=== PATIENT | female | born 1970 | race Caucasian/White ===

== ENCOUNTER 2023-12-16 13:02 | Inpatient (IN) | payer MEDICAID ==
[~2023-12-16] VITALS: Ht 162.6 cm; Wt 70.4 kg
[2023-12-16] MEDS: diphenhydrAMINE 50 mg/ml inj IV ONE (20:30)
[2023-12-16] MEDS: metoclopramide 5 mg/ml inj IV ONE (20:30)
[2023-12-16] MEDS: magnesium 1 gm/2ml inj. 1 GM in normal saline 50ml IV soln 50 ML IV ONE (21:00)
[2023-12-16 21:05] LABS: BASOPHILS % (AUTO) 0.5 % (0-1); EOSINOPHILS # (AUTO) 0.1 X10'3 (0-0.9); HEMATOCRIT 37.5 % (35.0-45.0); HEMOGLOBIN 12.6 g/dl (12.0-16.0); LYMPHOCYTES # (AUTO) 4.3 X10'3 (1.1-4.8); LYMPHOCYTES % (AUTO) 44.7 % (21-51); MEAN CORPUSCULAR HEMOGLOBIN 30.5 PG (27.0-31.0); MEAN CORPUSCULAR HGB CONC 33.6 g/dL (33.0-36.5); MEAN CORPUSCULAR VOLUME 90.9 FL (78-98); MEAN PLATELET VOLUME 7.5 FL (7.4-10.4); MONOCYTES # (AUTO) 0.3 X10'3 (0-0.9); MONOCYTES % (AUTO) 2.9 % (2-12); NEUTROPHILS # (AUTO) 4.8 X10'3 (1.8-7.7); NEUTROPHILS % (AUTO) 50.9 % (42-75); PLATELET COUNT 351 X10'3 (140-440); RED BLOOD COUNT 4.13 X10'6 (4.20-5.60); RED CELL DISTRIBUTION WIDTH 14.2 % (11.5-14.5); WHITE BLOOD COUNT 9.5 X10'3 (4.5-11.0)
[2023-12-16] MEDS ORDERED: iohexol 350MG/ML 100ml bottle IV ONE (21:07)
[2023-12-16 22:36] LABS: APTT 27 SECONDS (22-32); PROTHROMBIN TIME 10.8 SECONDS (9.0-12.0)
[2023-12-16 22:44] LABS: ALBUMIN 3.2 G/DL (3.4-5.0); ANION GAP 6 (8-16); BLOOD UREA NITROGEN 9 MG/DL (7-18); CALCIUM 8.5 MG/DL (8.5-10.1); CHLORIDE 103 MMOL/L (99-107); ETHANOL < 10 MG/DL (<10); GLUCOSE 83 MG/DL (70-104); POTASSIUM 3.8 MMOL/L (3.5-5.1); PRO BRAIN NATRIURETIC PEPTIDE 35 PG/ML (0-125); SODIUM 136 MMOL/L (135-145); TOTAL CARBON DIOXIDE 26.8 MMOL/L (24-32); eCRCL 61 ML/MIN; eGFR 65 ML/MIN
[2023-12-16] MEDS: clopidogrel 300mg tablet PO ONE (23:34)
[2023-12-16] MEDS: aspirin 81mg, enteric-coated 1 TAB TABLET.DR PO ONE (23:34)
[2023-12-16] MEDS ORDERED: hydrALAZINE 20mg/ml inj. IV PRN (23:55)
[2023-12-16] MEDS ORDERED: magnesium hydroxide 30ml (MOM) UD suspension PO PRN (23:55)
[2023-12-17] MEDS: normal saline 1000ml 1,000 ML IV SCH (00:40)
[2023-12-17] MEDS: PERFLUTREN PROTEIN-A MICROSPHR (Optison) 0.22 MG/ML 3ML VIAL IV ONE (01:26)
[2023-12-17 01:58] LABS: CHOL/HDL RATIO 5.8 (0.00-4.99); CHOLESTEROL 185 MG/DL (0-200); HDL CHOLESTEROL 32 MG/DL (35-60); LDL CHOLESTEROL 125 MG/DL (50-100); TRIGLYCERIDES 194 MG/DL (20-135)
[2023-12-17] MEDS: diazepam inj 5 MG/ML inj. IV ONE (06:54)
[2023-12-17 07:48] VITALS: BP 117/68; PULSE 71; RESP 16; TEMP 97.3; O2SAT 98
[2023-12-17] MEDS ORDERED: atorvastatin 20mg tablet PO SCH (08:00)
[2023-12-17] MEDS ORDERED: GABA-535 PO (08:19)
[2023-12-17] MEDS ORDERED: DULO30CA52 PO (08:19)
[2023-12-17] MEDS ORDERED: ALBUTEROL (08:19)
[2023-12-17] MEDS ORDERED: FLOVENT (08:19)
[2023-12-17] MEDS: clopidogrel 75mg tablet PO SCH (08:45)
[2023-12-17] MEDS: aspirin 81mg, enteric-coated 1 TAB TABLET.DR PO SCH (08:45)
[2023-12-17] MEDS: atorvastatin 20mg tablet PO SCH (08:46)
[2023-12-17 09:56] LABS: BASOPHILS % (AUTO) 0.4 % (0-1); EOSINOPHILS # (AUTO) 0.1 X10'3 (0-0.9); EOSINOPHILS % (AUTO) 1.2 % (0-6); HEMOGLOBIN 12.5 g/dl (12.0-16.0); LYMPHOCYTES % (AUTO) 43.8 % (21-51); MEAN CORPUSCULAR HEMOGLOBIN 30.5 PG (27.0-31.0); MEAN CORPUSCULAR HGB CONC 33.9 g/dL (33.0-36.5); MEAN CORPUSCULAR VOLUME 90.2 FL (78-98); MEAN PLATELET VOLUME 7.1 FL (7.4-10.4); MONOCYTES # (AUTO) 0.3 X10'3 (0-0.9); MONOCYTES % (AUTO) 3.2 % (2-12); NEUTROPHILS # (AUTO) 4.7 X10'3 (1.8-7.7); NEUTROPHILS % (AUTO) 51.4 % (42-75); PLATELET COUNT 356 X10'3 (140-440); WHITE BLOOD COUNT 9.2 X10'3 (4.5-11.0)
[2023-12-17 10:00] VITALS: BP 131/65; PULSE 64; RESP 14; TEMP 97.7; O2SAT 99
[2023-12-17 11:23] VITALS: BP 131/65; PULSE 64; RESP 14; TEMP 97.7; O2SAT 99
[2023-12-17 15:00] VITALS: BP 98/52; PULSE 54; RESP 16; TEMP 97.9; O2SAT 99
[2023-12-17] MEDS ORDERED: ASPI-1071 PO (16:20)
[2023-12-17] MEDS ORDERED: ATOR-2 PO (16:20)
[2023-12-17] MEDS ORDERED: CLOP75TA34 PO (16:20)
[2023-12-17 17:30] VITALS: BP 128/78; PULSE 56; RESP 18; TEMP 97.7; O2SAT 100
== END 2023-12-17 18:45 | disposition home or self-care (01) | DRG 45 ==
LOC: ER 13:02 → ED HOLD 12-17 00:04 → ORTHO 4S 12-17 07:34
PROVIDERS: ADMIT Student in an Organized Health Care Education/Training Program; ATTEND Family Medicine
DX: I63.9 Cerebral infarction, unspecified (principal); E78.00 Pure hypercholesterolemia, unspecified; J45.909 Unspecified asthma, uncomplicated; Z79.82 Long term (current) use of aspirin; G43.909 Migraine, unspecified, not intractable, without status migrainosus
CPT/HCPCS: 36415; 70450; 70496; 70498; 70551; 71045; 80048; 80061; 80320; 82948; 83036; 83880; 84484; 85025; 85610; 85730; 87081; 92508; 92616; 93005; 93306; 97161; 99285; G0378; J3360; J3490; J7030; Q9967